=== PATIENT | male | born 1980 | race Caucasian/White ===

== ENCOUNTER 2020-01-22 09:32 | Emergency (ER) | payer BC, OTHER ==
[2020-01-22] MEDS ORDERED: SODIUM CHLORIDE 0.9% (FLUSH) 10 ML SYG IV PRN (09:49)
[2020-01-22] MEDS ORDERED: SODIUM CHLORIDE 0.9% 1000ML 1,000 ML IVS PRN (09:49)
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
[2020-01-22] MEDS ORDERED: SODIUM CHLORIDE 0.9% 1000ML 1,000 ML IVS ONE (10:46)
[2020-01-22] MEDS ORDERED: POTASSIUM CHLORIDE 20 MEQ TAB PO SCH ×2 (11:19→17:00)
[2020-01-22] MEDS ORDERED: POTASSIUM CHLORIDE 20 MEQ TAB PO ONE (11:21)
[2020-01-22] MEDS ORDERED: MORPHINE SULFATE INJ 10 MG/ML VIAL IV ONE (11:38)
[2020-01-22 12:02] VITALS: BP 120/86; TEMP 98.7; O2SAT 99
== END 2020-01-22 12:02 | disposition home or self-care (01) ==
LOC: ER 09:32
DX: T75.01XA Shock due to being struck by lightning, initial encounter (principal); R07.89 Other chest pain; E87.6 Hypokalemia; R94.4 Abnormal results of kidney function studies; R20.0 Anesthesia of skin; R25.1 Tremor, unspecified; I50.9 Heart failure, unspecified; J45.909 Unspecified asthma, uncomplicated; Z79.899 Other long term (current) drug therapy; Z87.891 Personal history of nicotine dependence; Z79.01 Long term (current) use of anticoagulants; Z86.711 Personal history of pulmonary embolism; Z88.1 Allergy status to other antibiotic agents; Y93.89 Activity, other specified; Y92.009 Unspecified place in unspecified non-institutional (private) residence as the place of occurrence of the external cause
CPT/HCPCS: 36415; 71045; 80053; 81001; 82550; 82553; 84484; 85025; 85610; 85730; 93005; 94770; J2270; J7030

== ENCOUNTER 2020-05-07 18:17 | Emergency (ER) | payer OTHER ==
[2020-05-07] MEDS ORDERED: PANTOPRAZOLE SODIUM IV 40 MG VIAL IV ONE (19:02)
[2020-05-07 20:01] VITALS: TEMP 98.8; O2SAT 99
--- NOTE | 2020-05-07 20:05 | ED.PDOC ---
History of Present Illness - General Chief Complaint: GI Problem Stated Complaint: abdominal pain, n/v/d, blood in stool Time Seen by Provider: 05/07/20 18:58 Information Source: patient - History of Present Illness Initial Comments: Pt reports drinking one cup of a homemade detox solution made with apple cidar vinegar, honey, lemon juice, turmeric and a pinch of cayenne pepper. He developed abdominal pain shortly thereafter. He did not have vomited or diarrhea Pain Radiation: no radiation Quality: severe Timing/Duration: 1/2 hour Improving Factors: nothing Worsening Factors: nothing Associated Symptoms: denies symptoms Review of Systems - Review of Systems Constitutional: States: no symptoms reported EENTM: States: no symptoms reported Respiratory: States: no symptoms reported Cardiology: States: no symptoms reported Gastrointestinal/Abdominal: States: see HPI Genitourinary: States: no symptoms reported Musculoskeletal: States: no symptoms reported Skin: States: no symptoms reported Neurological: States: no symptoms reported Endocrine: States: no symptoms reported Past Medical History (General) - Patient Medical History Hx Seizures: Yes - as a child Hx Stroke: No Hx Asthma: Yes - rescue inhaler Hx of COPD: No - PE's Hx Cardiac Disorders: No Hx Congestive Heart Failure: No Hx Pacemaker: No Hx Hypertension: No Hx Diabetes: No Hx Cancer: No Hx Hepatitis C: No Hx MRSA: No - Vaccination History Hx Tetanus, Diphtheria Vaccination: Yes Hx Influenza Vaccination: Yes Hx Pneumococcal Vaccination: No - Social History Hx Tobacco Use: Yes Hx Chewing Tobacco Use: No Hx Alcohol Use: No Hx Substance Use: No Hx Substance Use Treatment: No Hx Depression: No Hx Physical Abuse: No Hx Emotional Abuse: No - Female History Patient : No Family Medical History - Family History Father Family History: No Known Grandparents Family History: Unknown Hx Family Diabetes: Yes Physical Exam - Physical Exam General Appearance: Agitated, Alert, Anxious, Comfortable Neck: non-tender, full range of motion, supple Respiratory: chest non-tender, lungs clear, normal breath sounds, no respiratory distress Cardiovascular/Chest: normal peripheral pulses, regular rate, rhythm, no edema Peripheral Pulses: No deficit Gastrointestinal/Abdominal: normal bowel sounds, non tender, soft, no organomegaly Departure - Departure Clinical Impression: Toxic effect of ingested food Abdominal pain Qualifiers: Abdominal location: generalized Qualified Code(s): R10.84 - Generalized abdominal pain Gastritis Qualifiers: Gastritis type: unspecified gastritis Chronicity: acute Gastritis bleeding: without bleeding Qualified Code(s): K29.00 - Acute gastritis without bleeding Time of Disposition: 20:03 Disposition: Discharge to Home or Self Care Condition: Fair Departure Forms: ED Discharge - Pt. Copy, Patient Portal Self Enrollment Instructions: Gastritis Referrals: Manisha HARRIS [Primary Care Provider] - 1-2 Weeks Home Medications: Ambulatory Orders Cyclobenzaprine HCl [Flexeril] 10 mg PO BEDTIME #10 tab 12/31/14 Acetaminophen W/ Codeine [Tylenol W/ CODEINE #3] 1 ea PO Q4H PRN #12 08/01/15 Ibuprofen [Motrin Tab] 600 mg PO Q8H PRN #15 tab 08/01/15 Additional Instructions: RECOMMEND OTC PEPCID AC 2 TABLETS TWICE DAILY FOR 5 DAYS.
[2020-05-07 20:24] VITALS: BP 134/75
== END 2020-05-07 20:24 | disposition home or self-care (01) ==
LOC: ER 18:17
DX: A05.9 Bacterial foodborne intoxication, unspecified (principal); J45.909 Unspecified asthma, uncomplicated; Z87.891 Personal history of nicotine dependence; Z86.711 Personal history of pulmonary embolism